=== PATIENT | female | born 1950 | race Caucasian/White ===

== ENCOUNTER 2020-10-13 12:24 | Outpatient (CLI) | payer MEDICARE ==
--- NOTE | 2020-10-20 12:28 | Mammography Report ---
BILATERAL DIGITAL SCREENING MAMMOGRAM 3D/2D: 10/13/2020 CLINICAL: Routine screening. Comparison is made to exams dated: 04/27/2017 mammogram and 12/11/2018 mammogram - [facility]. There are scattered fibroglandular elements in both breasts. No significant masses, calcifications, or other findings are seen in either breast. There has been no significant interval change. IMPRESSION: NEGATIVE There is no mammographic evidence of malignancy. A 1 year screening mammogram is recommended. This exam was interpreted at Station ID: [id number]. NOTE: For mammograms, a report in lay terms will be sent to the patient. Approximately 15% of breast malignancies will not be visualized mammographically. In the management of a palpable breast mass, a negative mammogram must not discourage biopsy of a clinically suspicious lesion. Electronically Signed By: Amrit chan/sony:10/19/2020 14:58:34 ACR BI-RADS Category 1: Negative 3341F PARENCHYMAL PATTERN: (A) - The breast(s) demonstrate(s) scattered fibroglandular densities. BI-RADS CATEGORY: (1) - 1 RECOMMENDATION: (ANNUAL) - Recommend routine annual screening mammography. [id number] 1 year screening LATERALITY: (B)
== END 2020-10-13 12:25 | disposition home or self-care (01) ==
LOC: DI.N 12:24
PROVIDERS: ATTEND Family Medicine
DX: Z12.31 Encounter for screening mammogram for malignant neoplasm of breast (principal)

== ENCOUNTER 2022-02-22 06:27 | Day surgery (SDC) | payer MEDICARE ==
[2022-02-22] MEDS ORDERED: LACTATED RINGERS 1,000 ML IV ONE (07:00)
--- NOTE | 2022-02-22 07:02 | ANESTHESIA ---
Pre-Anesthesia VS, & Labs - Diagnosis screening - Procedure colonoscopy Vital Signs: Temp Pulse Resp BP Pulse Ox 36.2 C L 81 18 171/80 H 99 02/22/22 06:30 02/22/22 06:30 02/22/22 06:30 02/22/22 06:30 02/22/22 06:30 Height: 5 ft 6 in Weight (kg): 101.6 kg Body Mass Index: 36.1 BMI Classification: Obese - NPO >8 hours Last Fluid Intake: am prep - Is Patient ?: No - Lab Results Lab results reviewed: Yes Home Medications and Allergies Home Medications: Ambulatory Orders Dabigatran [Pradaxa] 75 mg PO DAILY 02/21/22 FLUoxetine [PROzac] 10 mg PO DAILY 02/21/22 Verapamil ER [Calan SA] 120 mg PO DAILY 02/21/22 amLODIPine [Norvasc] 5 mg PO DAILY 02/21/22 Dabigatran [Pradaxa] 75 mg PO DAILY 02/21/22 FLUoxetine [PROzac] 10 mg PO DAILY 02/21/22 Verapamil ER [Calan SA] 120 mg PO DAILY 02/21/22 amLODIPine [Norvasc] 5 mg PO DAILY 02/21/22 Allergies/Adverse Reactions: Allergies Allergy/AdvReac Type Severity Reaction Status Date / Time Beta-Blockers AdvReac Unknown Verified 02/21/22 12:32 (Beta-Adrenergic Bloc Anes History & Medical History - Anesthetic History Anesthesia Complications: reports: No previous complications Family history of Anesthesia Complications: Denies Family history of Malignant Hyperthermia: Denies - Medical History Cardiovascular: reports: Hypertension, Atrial fibrillation Pulmonary: reports: Asthma Gastrointestinal: reports: Other Endocrine/Autoimmune: reports: Type 2 diabetes History of Cancer?: No - Surgical History General: reports: Cholecystectomy, Colonoscopy Eyes Ears Nose Throat (EENT): reports: Tonsil/Adenoidectomy Cardiothoracic: reports: Pacemaker (2017), Other (AF ablation 2020) Gynecologic: reports: Endometrial ablation, Breast reduction Exam General: Alert, Oriented x3, Cooperative Dental: WNL Mouth Openin Fingerbreadth Neck Mobility: Normal Mallampati classification: II Thyromental Distance: 4-6 cm Respiratory: Lungs clear, Normal breath sounds, No respiratory distress Cardiovascular: Regular rate Neurological: Normal speech Mental/Cognitive Status: Alert/Oriented X3, Normal for patient Cognitive Status: Within normal limits Plan Anesthesia Type: Total IV Consent for Procedure(s) Verified and Reviewed: Yes Code Status: Attempt Resuscitation ASA classification: 3-Severe systemic disease Is this case an emergency?: No
[2022-02-22] MEDS ORDERED: PROPOFOL 500 MG/50 ML 500 MG/50 ML VIAL ONE (07:41)
[2022-02-22] MEDS ORDERED: LACTATED RINGERS 700 ML IV ONE (07:52)
--- NOTE | 2022-02-22 07:57 | ANESTHESIA POST OP EVALUATION ---
Anesthesia Post Eval - Post Anesthesia Eval Vitals: Last Vital Signs Temp 36.2 C L 02/22/22 06:30 Pulse 81 02/22/22 06:30 Resp 18 02/22/22 06:30 BP 171/80 H 02/22/22 06:30 Pulse Ox 99 02/22/22 06:30 CV Function Including HR & BP: Stable Pain Control: Satisfactory Nausea & Vomiting: Negative Mental Status: Baseline Respiratory Status: Airway Patent Hydration Status: Satisfactory Anesthesia Complications: None
[2022-02-22 08:22] VITALS: BP 135/68
== END 2022-02-22 06:28 | disposition home or self-care (01) ==
LOC: SDS 06:27
PROVIDERS: ATTEND Surgery
PROC: 0DBK8ZZ Excision of Ascending Colon, Via Natural or Artificial Opening Endoscopic (ICD-10-PCS; principal; 2022-02-22 07:30)
DX: Z12.11 Encounter for screening for malignant neoplasm of colon (principal); D12.2 Benign neoplasm of ascending colon; E66.9 Obesity, unspecified; Z68.36 Body mass index [BMI] 36.0-36.9, adult; I48.91 Unspecified atrial fibrillation; J45.909 Unspecified asthma, uncomplicated
CPT/HCPCS: 45380; J7120

== ENCOUNTER 2023-01-16 12:18 | Outpatient (CLI) | payer MEDICARE ==
--- NOTE | 2023-01-17 10:36 | Mammography Report ---
BILATERAL DIGITAL SCREENING MAMMOGRAM 3D/2D: 01/16/2023 CLINICAL: Routine screening. Comparison is made to exams dated: 10/13/2020 mammogram - [facility], 12/11/2018 ma mmogram, and 04/27/2017 mammogram - [facility]. There are scattered areas of fibroglandular density in both breasts (category b / 25%-50% glandular t issue). No significant masses, calcifications, or other findings are seen in either breast. There has been no significant interval change. IMPRESSION: NEGATIVE There is no mammographic evidence of malignancy. A 1 year screening mammogram is recommended. Based on the Tyrer Cuzick model (a risk assessment model) the patients lifetime risk is 7.1% and her 10 year risk is 4.5%. According to the ACR, ACS, and NCCN guidelines, an annual breast MRI exam elodia g with mammogram is recommended if the patients lifetime risk is 20% or greater. This exam was interpreted at Station ID: [id number]. NOTE: For mammograms, a report in lay terms will be sent to the patient. Approximately 15% of breast malignancies will not be visualized mammographically. In the management of a palpable breast mass, a negative mammogram must not discourage biopsy of a clinically suspicious lesion. Electronically Signed By: Stewart mehta/sony:01/16/2023 17:22:51 letter sent: No_Letter ACR BI-RADS Category 1: Negative 3341F PARENCHYMAL PATTERN: (A) - The breast(s) demonstrate(s) scattered fibroglandular densities. BI-RADS CATEGORY: (1) - 1 Mammogram [id number] 1 year screening LATERALITY: (B)
== END 2023-01-16 12:19 | disposition home or self-care (01) ==
LOC: DI 12:18
PROVIDERS: ATTEND Physician Assistant
DX: Z12.31 Encounter for screening mammogram for malignant neoplasm of breast (principal)

== ENCOUNTER 2023-01-16 12:18 | Outpatient (CLI) | payer MEDICARE ==
--- NOTE | 2023-01-16 15:30 | DEXA Report ---
PROCEDURE: Dexa Spine and/or Hip INDICATIONS: POST MENOPAUSAL TECHNIQUE: Dual energy x-ray absorptiometry (DXA) was performed on a [employer] System. Regions measur ed are the AP Spine, femoral neck, and if needed forearm. COMPARISON: None. FINDINGS: Lumbar Spine: Bone Mineral Density 1.525 g/cm/cm,T score 2.9, normal Left Femoral Neck: Bone Mineral Density 0.967 g/cm/cm, T score -0.5, normal Left Hip: Bone Mineral Density 1.032 g/cm/cm,T score 0.2, normal (T score greater or equal to -1.0: NORMAL) (T score from -1.1 to -2.4: OSTEOPENIA) (T score less than or equal to -2.5 to: OSTEOPOROSIS) Impression: Bone mineral density is within normal limits. Patients with diagnosis of osteoporosis or osteopenia should have regular bone mineral density assess ment. For those eligible for Medicare, routine testing is allowed once every 2 years. Testing frequ ency can be increased for patients who have rapidly progressing disease or for those who are receivin g medical therapy to restore bone mass. Reviewed by: Amrit Gaitan MD on 01/16/2023 3:28 PM PDT Approved by: Amrit Gaitan MD on 01/16/2023 3:28 PM PDT Station ID: [id number]
== END 2023-01-16 12:19 | disposition home or self-care (01) ==
LOC: DI 12:18
PROVIDERS: ATTEND Internal Medicine
DX: N95.8 Other specified menopausal and perimenopausal disorders (principal)

== ENCOUNTER 2023-02-16 19:40 | Emergency (ER) | payer MEDICARE ==
--- NOTE | 2023-02-16 20:16 | ED Physician Documentation ---
History of Present Illness - Stated complaint Stated Complaint: TOOK 2X MEDS - Chief complaint Chief Complaint: General - History obtained from History obtained from: Patient - Additonal information Additional information: HPI from patient. This morning at 6:45 AM patient took her usual a.m. meds including 2.5 mg amlodipine and 240 mg of verapamil sr. This evening at 6:45 PM, patient went to take her p.m. meds but accidentally took her a.m. meds which were a redose of the verapamil and amlodipine. She is only supposed to take the verapamil and amlodipine once per day. She did then take her p.m. meds which include Pradaxa. She is asymptomatic but comes to the ER out of concern regarding taking too much of her blood pressure medications. 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, Breast reduction Cardiovascular: Pacemaker (2017), Other (AF ablation 2020) HEENT: Tonsil/Adenoidectomy - Present Medications Home Medications: Ambulatory Orders Medication Instructions Recorded Confirmed Dabigatran [Pradaxa] 75 mg PO DAILY 02/21/22 02/21/22 FLUoxetine [PROzac] 10 mg PO DAILY 02/21/22 02/21/22 Verapamil ER [Calan SA] 120 mg PO DAILY 02/21/22 02/21/22 amLODIPine [Norvasc] 5 mg PO DAILY 02/21/22 02/21/22 - Allergies Allergies/Adverse Reactions: Allergies Allergy/AdvReac Type Severity Reaction Status Date / Time Beta-Blockers AdvReac Unknown Verified 02/16/23 20:10 (Beta-Adrenergic Bloc PD ED PE NORMAL - Vitals Vital signs reviewed: Yes - General General: Alert and oriented X 3, No acute distress, Well developed/nourished - Cardiac Cardiac: RRR, No murmur, No gallop, No rub - Respiratory Respiratory: No respiratory distress, Clear bilaterally - Neuro Neuro: Alert and oriented X 3 Results - Vitals Vitals: Oxygen O2 Source Room air - EKG (time done) No standard instances EKG releavant findings:: EKG personally interpreted by author of this note. Relevant findings are: Rate: Rate (enter#) (78) Rhythm: NSR [place]: Normal Intervals: Normal CT QRS: Normal Ischemia: Normal ST segments PD Medical Decision Making - ED course Complexity details: reviewed results, re-evaluated patient, considered differential, d/w patient ED course: Patient is observed in ED for 2.5 hours and is asymptomatic throughout. I discussed with patient that [facility] recommended up to 12 hours of observation, but she feels comfortable with d/c when I reevaluated her after 2.5 hours. One of he r two anti-hypertensives is sustained release, but even with the extra dose taken today, both of these medications are still within dosing guidelines (the verapamil SR would be maximum dose for QD dosing); considering this , and that patient is asymptomatic with normal blood pressure readings during her 2.5 hours of ED observation, I feel patient is safe and appropriate for discharge at this time. Return precautions are discussed. Departure - Departure Disposition: 01 Home, Self Care Clinical Impression: Overdose of calcium-channel nils Qualifiers: Encounter type: initial encounter Injury intent: accidental or unintentional Qualified Code(s): T46.1X1A - Poisoning by calcium-channel blockers, accidental (unintentional), initial encounter Condition: Good Instructions: ED Overdose Accidental Comments: Your blood pressures were normal throughout your stay in the emergency department tonight. Your EKG had no concerning findings. You can take your blood pressure medication as scheduled in the morning, but take your blood pressure before you take these medications. If your systolic blood pressure (top number) is below 110 and/or your diastolic blood pressure (lower number) is below 50, you should skip tomorrow's doses of the blood pressure medications. As we discussed, high blood pressure can cause many different medical problems, but generally this happens over time. Low blood pressure is an immediate danger. Thus, it would be safer to have a slightly elevated blood pressure tomorrow if you have to skip your medications in the morning rather than taking medications and having a blood pressure dipped to low. I think the most likely scenario is that your blood pressure is within your usual range when you wake up in the morning and, if so, would be safe to go ahead and take both the amlodipine and the verapamil Discharge Date/Time: 02/16/23 22:19
[2023-02-16 21:59] VITALS: BP 136/55
== END 2023-02-16 22:19 | disposition home or self-care (01) ==
LOC: ED 19:40
DX: T46.1X1A Poisoning by calcium-channel blockers, accidental (unintentional), initial encounter (principal); I10 Essential (primary) hypertension; I48.91 Unspecified atrial fibrillation; E11.9 Type 2 diabetes mellitus without complications
CPT/HCPCS: 93005; 99283

== ENCOUNTER 2024-03-26 10:28 | Outpatient (CLI) | payer MEDICARE ==
--- NOTE | 2024-03-27 09:38 | Mammography Report ---
BILATERAL DIGITAL SCREENING MAMMOGRAM 3D/2D: 03/26/2024 CLINICAL: Routine screening. Comparison is made to exams dated: 01/16/2023 mammogram, 10/13/2020 mammogram - [facility], 12/11/2018 mammogram, and 04/27/2017 mammogram - [facility]. There are scattered areas of fibroglandular density in both breasts (category b / 25%-50% glandular t issue). No significant masses, calcifications, or other findings are seen in either breast. There has been no significant interval change. IMPRESSION: NEGATIVE There is no mammographic evidence of malignancy. A 1 year screening mammogram is recommended. Based on the Tyrer Cuzick model (a risk assessment model) the patient's lifetime risk is 6.7% and her 10 year risk is 4.6%. According to the ACR, ACS, and NCCN guidelines, an annual breast MRI exam elodia g with mammogram is recommended if the patient's lifetime risk is 20% or greater. This exam was interpreted at Station ID: [id number]. NOTE: For mammograms, a report in lay terms will be sent to the patient. Approximately 15% of breast malignancies will not be visualized mammographically. In the management of a palpable breast mass, a negative mammogram must not discourage biopsy of a clinically suspicious lesion. Electronically Signed By: Zac larson/sony:03/26/2024 11:21:12 letter sent: No_Letter ACR BI-RADS Category 1: Negative 3341F PARENCHYMAL PATTERN: (A) - The breast(s) demonstrate(s) scattered fibroglandular densities. BI-RADS CATEGORY: (1) - 1 RECOMMENDATION: (ANNUAL) - Recommend routine annual screening mammography. [id number] 1 year screening LATERALITY: (B)
== END 2024-03-26 10:29 | disposition home or self-care (01) ==
LOC: DI.N 10:28
DX: Z12.31 Encounter for screening mammogram for malignant neoplasm of breast (principal); R92.323 Mammographic fibroglandular density, bilateral breasts